=== PATIENT | male | born 1960 | race Native Hawaiian/Other Pacific Islander ===

== ENCOUNTER 2017-08-05 18:50 | Emergency (ER) | payer OTHER ==
[~2017-08-05] VITALS: Ht 172.7 cm; Wt 83.9 kg
== END 2017-08-05 23:08 | disposition home or self-care (01) ==
LOC: ED 18:50
DX: R51 Headache (principal)
CPT/HCPCS: 96372; 99283; J1170; J2175; J2405; J2550